=== PATIENT | female | born 2000 | race Caucasian/White ===

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

== ENCOUNTER → 2020-07-23 | Outpatient (CLI) | payer OTHER, MEDICAID, SELFPAY ==
[2020-07-23 10:28] VITALS: BMI 39.2
[2020-07-23 14:04] LABS: Amphetamine Urine VISTA NEGATIVE (<1000 ng/mL); Barbiturate Urine VISTA NEGATIVE (< 200 ng/mL); Benzodiazepine Urine VISTA NEGATIVE (< 200 ng/mL); Cocaine Urine VISTA NEGATIVE (< 300 ng/mL); Ecstacy Urine VISTA NEGATIVE (< 500 ng/mL); Methadone Urine VISTA NEGATIVE (< 300 ng/mL); PCP Urine VISTA NEGATIVE (< 25 ng/mL); THC Urine VISTA POSITIVE (< 50 ng/mL); Vista UDS pH Range 6
[2020-07-25 03:06] LABS: Chlamydia By Nucleic Acid AMP Negative (Negative)
[2020-07-25 08:21] LABS: Gonococcus By Nucleic Acid AMP Negative (Negative)
== END | disposition home or self-care (01) ==
LOC: LABSPEC 13:28
PROVIDERS: Referring Provider Obstetrics & Gynecology; Visit Provider Obstetrics & Gynecology
DX: Z34.00 Encounter for supervision of normal first pregnancy, unspecified trimester (principal)
CPT/HCPCS: 80307; 87086; 87491; 87591

== ENCOUNTER → 2020-08-22 11:20 | Outpatient (CLI) | payer OTHER, MEDICAID, SELFPAY ==
[2020-08-22 10:49] VITALS: BMI 38.5
[2020-08-22 11:55] LABS: Absolute Lymphocyte Count 1.94 X10^3/uL (0.83-4.51); Absolute Neutrophil Count 9.8 X10^3/uL (2.0-7.7); Basophil# 0.02 X10^3/uL; Basophil% 0.2 % (0-1); Eosinophil# 0.03 X10^3/uL; Eosinophils% 0.2 % (0-5); Hematocrit 36.2 % (37-47); Hemoglobin 12.4 g/dL (12.0-15.0); Lymphocyte # 1.94 X10^3/ul (4.0); Lymphocyte % 15.6 % (19-41); Mean Corp Hgb Conc 34.3 g/dL (32-36); Mean Corpuscular Hgb 30.2 pg (27.0-32.0); Mean Corpuscular Volume 88.3 fL (81-99); Mean Platelet Vol. 9.4 fl (6.2-12.0); Monocyte# 0.56 X10^3/uL; Monocyte% 4.5 % (0-10); NRBC Flagged by Analyzer 0 % (0-5); Neutrophil # 9.81 X10^3/uL (2.7-7.7); Neutrophil % 79.2 % (47-70); Platelet Count 293 K/mm3 (150-450); RBC Distribution Width CV 11.9 % (11.6-14.6); RBC Distribution Width SD 38.3 fl (35.1-43.9); White Blood Count 12.4 K/mm3 (4.4-11.0)
[2020-08-22 12:16] LABS: Glucose Challenge Gest 1H 50g 109 mg/dL (70-140)
[2020-08-22 13:04] LABS: HIV - WCH Non-Reactive (Nonreactive); Hepatitis B Surface Antigen Non-Reactive (Nonreactive); Hepatitis C Antibody Non-Reactive (Nonreactive); Rubella IgG Reactive (Nonreactive); Syphilis Antibodies Non-reactive
== END ==
PROVIDERS: Referring Provider Obstetrics & Gynecology; Visit Provider Obstetrics & Gynecology
DX: O99.210 Obesity complicating pregnancy, unspecified trimester (principal); Z31.430 Encounter of female for testing for genetic disease carrier status for procreative management
CPT/HCPCS: 36415; 82950; 85025; 86703; 86762; 86803; 86850; 86900; 86901; 87340

== ENCOUNTER 2020-11-19 14:25 | Outpatient (CLI) | payer MEDICAID, SELFPAY ==
[2020-11-16 11:26] VITALS: BMI 41.4
[2020-11-19 14:38] VITALS: BMI 40.6
[2020-11-19 16:41] VITALS: BP 111/56; PULSE 86
--- NOTE | 2020-11-20 10:01 | OB.TRI.PN ---
Progress Notes Progress Note: Patient presents for triage evaluation secondary to fall. Fell down 4 stairs and hit her abdomen. Monitored continuously for 4 hours with no evidence of contractions. Discharged in stable condition. FHT: Moderate variability reactive no decelerations category I tracing [place]: No Contractions Assessment and plan: Reactive NST, reassuring maternal and status patient discharged to home to follow-up at next scheduled visit. See problem list details for additional plan information. Procedures Urinary/Genital 52xxx-59xxx: [id number] non-stress test Interp
== END 2020-11-19 16:53 | disposition home or self-care (01) ==
LOC: WPOUT 14:34 → WP 14:34
PROVIDERS: Visit Provider Obstetrics & Gynecology
DX: Z34.90 Encounter for supervision of normal pregnancy, unspecified, unspecified trimester (principal); W10.9XXA Fall (on) (from) unspecified stairs and steps, initial encounter
CPT/HCPCS: 59025; 59050; 99218; G0378

== ENCOUNTER → 2020-11-20 13:00 | Outpatient (CLI) | payer MEDICAID, SELFPAY ==
[2020-11-19 14:38] VITALS: BMI 40.6
== END ==
PROVIDERS: Referring Provider Nurse Practitioner Women's Health; Visit Provider Nurse Practitioner Women's Health
DX: O26.892 Other specified pregnancy related conditions, second trimester (principal); Z67.91 Unspecified blood type, Rh negative; Z3A.00 Weeks of gestation of pregnancy not specified
CPT/HCPCS: 36415; 86850; 86900; 86901

== ENCOUNTER → 2020-12-06 11:42 | Outpatient (CLI) | payer OTHER, MEDICAID, SELFPAY ==
[2020-12-06 11:21] VITALS: BMI 40.6
[2020-12-06 12:00] LABS: Absolute Lymphocyte Count 2.28 X10^3/uL (0.83-4.51); Basophil# 0.02 X10^3/uL; Basophil% 0.1 % (0-1); Eosinophil# 0.09 X10^3/uL; Eosinophils% 0.6 % (0-5); Hematocrit 34.2 % (37-47); Hemoglobin 11.4 g/dL (12.0-15.0); Lymphocyte # 2.28 X10^3/ul (0.83-4.51); Lymphocyte % 16.4 % (19-41); Mean Corp Hgb Conc 33.3 g/dL (32-36); Mean Corpuscular Hgb 29.9 pg (27.0-32.0); Mean Corpuscular Volume 89.8 fL (81-99); Mean Platelet Vol. 8.9 fl (6.2-12.0); Monocyte# 0.44 X10^3/uL; Monocyte% 3.2 % (0-10); NRBC Flagged by Analyzer 0 % (0-5); Platelet Count 303 K/mm3 (150-450); RBC Distribution Width CV 12.3 % (11.6-14.6); Red Blood Count 3.81 M/mm3 (4.2-5.4); White Blood Count 13.9 K/mm3 (4.4-11.0)
[2020-12-06 12:41] LABS: Glucose Challenge Gest 1H 50g 117 mg/dL (70-140)
[2020-12-06 13:06] LABS: Syphilis Antibodies Non-reactive
[2020-12-06 15:23] LABS: Amphetamine Urine VISTA NEGATIVE (<1000 ng/mL); Barbiturate Urine VISTA NEGATIVE (< 200 ng/mL); Benzodiazepine Urine VISTA NEGATIVE (< 200 ng/mL); Cocaine Urine VISTA NEGATIVE (< 300 ng/mL); Ecstacy Urine VISTA NEGATIVE (< 500 ng/mL); Methadone Urine VISTA NEGATIVE (< 300 ng/mL); PCP Urine VISTA NEGATIVE (< 25 ng/mL); THC Urine VISTA POSITIVE (< 50 ng/mL); Vista UDS pH Range 6
== END ==
PROVIDERS: Nurse Practitioner Women's Health; Obstetrics & Gynecology; Referring Provider Obstetrics & Gynecology; Visit Provider Obstetrics & Gynecology
DX: O99.321 Drug use complicating pregnancy, first trimester (principal); F12.10 Cannabis abuse, uncomplicated; O26.892 Other specified pregnancy related conditions, second trimester; Z67.91 Unspecified blood type, Rh negative; Z3A.00 Weeks of gestation of pregnancy not specified
CPT/HCPCS: 36415; 80307; 82950; 85025; 86780; 86850; 86870; 86900; 86901

== ENCOUNTER → 2021-01-03 09:12 | Outpatient (CLI) | payer OTHER, MEDICAID, SELFPAY ==
[2020-12-28 13:21] VITALS: BMI 40.6
--- NOTE | 2021-01-03 09:13 | US_ITS ---
STUDY: SECOND AND THIRD TRIMESTER OBSTETRICAL ULTRASOUND - LIMITED REASON FOR EXAM: Female, 20 years old growth LMP: 05/18/2020. PRIOR ULTRASOUND: None. TECHNIQUE: Transabdominal TECHNICAL QUALITY: Adequate. FINDINGS: There is a single intrauterine fetus. The fetus is in a cephalic presentation. There is demonstrated cardiac activity with a heart rate of 152 bpm. There is a normal amniotic fluid volume. The largest amniotic fluid pocket measures 4.87 cm cm. The amniotic fluid index (JUAN) is 12.7 cm. The placenta is anterior in location and is not low lying. There are Grade 1 placental changes. The cervix measures 3.6 cm in length. BIOMETRY: BPD: 8.42 cm: 33 weeks, 6 days HC: 31.13 cm: 34 weeks, 5 days AC: 29.87 cm: 33 weeks, 5 days FL: 6.4 cm: 33 weeks, 0 days Age by LMP: 32 weeks, 6 days. ALE by LMP: 02/22/2021. age by current US: 34 weeks, 0 days. ALE by current US: 02/14/2021. Estimated weight: 2266 grams, +/- 340 grams, 68 percentile. US/OB Limited With Biometrics IMPRESSION: Single live intrauterine gestation with a mean gestational age of 34 weeks. Electronically Signed: Dipak Bates MD at 15:37 EDT , Service support ,
== END ==
PROVIDERS: Referring Provider Obstetrics & Gynecology; Visit Provider Obstetrics & Gynecology
DX: O99.213 Obesity complicating pregnancy, third trimester (principal); E66.9 Obesity, unspecified; Z3A.32 32 weeks gestation of pregnancy
CPT/HCPCS: 76816

== ENCOUNTER → 2021-01-25 | Outpatient (CLI) | payer OTHER, MEDICAID, SELFPAY ==
[2021-01-25 08:53] VITALS: BMI 44.7
== END | disposition home or self-care (01) ==
PROVIDERS: Visit Provider Obstetrics & Gynecology
DX: Z34.01 Encounter for supervision of normal first pregnancy, first trimester (principal); Z3A.00 Weeks of gestation of pregnancy not specified
CPT/HCPCS: 87081

== ENCOUNTER → 2021-01-31 07:39 | Outpatient (CLI) | payer OTHER, MEDICAID, SELFPAY ==
[2021-01-25 08:53] VITALS: BMI 44.7
--- NOTE | 2021-01-31 07:59 | US_ITS ---
STUDY: SECOND AND THIRD TRIMESTER OBSTETRICAL ULTRASOUND - LIMITED REASON FOR EXAM: Female, 20 years old growth -- 36 weeks gestation LMP: 05/18/2020. PRIOR ULTRASOUND: Comparison is made with prior examination dated 01/03/2021. TECHNIQUE: Transabdominal TECHNICAL QUALITY: Adequate. FINDINGS: There is a single intrauterine fetus. The fetus is in a cephalic presentation. There is demonstrated cardiac activity with a heart rate of 153 bpm. There is a normal amniotic fluid volume. The largest amniotic fluid pocket measures 3.8 cm. The amniotic fluid index (JUAN) is 14.3 cm. The placenta is anterior in location and is not low lying. There are Grade 2 placental changes. BIOMETRY: BPD: 9.4 cm: 38 weeks, 1 days HC: 33.9 cm: 38 weeks, 6 days AC: 34.4 cm: 38 weeks, 2 days FL: 7.3 cm: 37 weeks, 1 days Age by LMP: 36 weeks, 6 days. ALE by LMP: 02/22/2021. age by prior US: 38 weeks, 0 days. ALE by prior US: 02/14/2021. age by current US: 38 weeks, 2 days. ALE by current US: 02/13/2020. Estimated weight: 3423 grams, +/- 5:30 grams, 86 percentile. US/OB Limited With Biometrics IMPRESSION: Single live intrauterine gestation with a mean gestational age of 38 weeks. The measurements obtained today fall within the normal expected range. Electronically Signed: Dipak Bates MD at 10:34 EDT , Service support ,
== END ==
PROVIDERS: Referring Provider Obstetrics & Gynecology; Visit Provider Obstetrics & Gynecology
DX: O99.210 Obesity complicating pregnancy, unspecified trimester (principal); E66.9 Obesity, unspecified; Z3A.36 36 weeks gestation of pregnancy
CPT/HCPCS: 76816

== ENCOUNTER → 2021-02-01 10:31 | Outpatient (CLI) | payer MEDICAID, SELFPAY ==
[2021-01-31 10:16] VITALS: BMI 44.7
[2021-02-01 11:14] LABS: ALB/GLOB Ratio 0.6 RATIO (0.9-2.4); AST(SGOT) 18 U/L (15-37); Alanine Aminotransfer ALT/SGPT 27 U/L (13-56); Albumin, Serum 2.6 g/dL (3.2-5.0); Alkaline Phosphatase 114 U/L (45-117); Anion Gap 9 (5-15); BUN 9 mg/dL (7-18); BUN/Creat Ratio 15.4 RATIO (10-20); Calcium,Total 9.3 mg/dL (8.5-10.1); Chloride 107 mmol/L (98-107); Creatinine, Serum 0.58 mg/dL (0.55-1.02); EST Glomerular Filtration Rate 138 mL/min (>60); Est Glom Filt Rate - Afr Amer 167 mL/min (>60); Globulin 4.4 g/dL (2.2-4.2); Glucose 103 mg/dL (74-106); Potassium 3.8 mmol/L (3.5-5.1); Sodium Level 138 mmol/L (136-145)
== END ==
PROVIDERS: Referring Provider Obstetrics & Gynecology; Visit Provider Obstetrics & Gynecology
DX: O26.893 Other specified pregnancy related conditions, third trimester (principal); L29.9 Pruritus, unspecified; Z3A.36 36 weeks gestation of pregnancy
CPT/HCPCS: 36415; 80053

== ENCOUNTER 2021-02-04 16:15 | Inpatient (IN) | payer OTHER, MEDICAID, SELFPAY ==
[2021-01-31 10:16] VITALS: BMI 44.7
[2021-02-04 16:50] VITALS: BMI 47.4
[2021-02-04 17:23] LABS: Absolute Lymphocyte Count 2.52 X10^3/uL (0.83-4.51); Absolute Neutrophil Count 12.1 X10^3/uL (2.0-7.7); Basophil# 0.03 X10^3/uL; Basophil% 0.2 % (0-1); Eosinophil# 0.05 X10^3/uL; Eosinophils% 0.3 % (0-5); Hematocrit 35.8 % (37-47); Hemoglobin 11.7 g/dL (12.0-15.0); Lymphocyte # 2.52 X10^3/ul (0.83-4.51); Lymphocyte % 16.1 % (19-41); Mean Corp Hgb Conc 32.7 g/dL (32-36); Mean Corpuscular Hgb 29.2 pg (27.0-32.0); Mean Corpuscular Volume 89.3 fL (81-99); Mean Platelet Vol. 9.4 fl (6.2-12.0); Monocyte# 0.82 X10^3/uL; Monocyte% 5.2 % (0-10); NRBC Flagged by Analyzer 0 % (0-5); Neutrophil # 12.14 X10^3/uL (2.7-7.7); Neutrophil % 77.7 % (47-70); Platelet Count 397 K/mm3 (150-450); RBC Distribution Width CV 12.8 % (11.6-14.6); RBC Distribution Width SD 41.4 fl (35.1-43.9); Red Blood Count 4.01 M/mm3 (4.2-5.4); White Blood Count 15.6 K/mm3 (4.4-11.0)
--- NOTE | 2021-02-04 17:33 | HP.PCM.OB_ITS ---
HPI - General General Date of Admission: 02/04/21 HPI Narrative MANUEL CAMERON, is a 20 F who presents for IOL secondary to cholestasis diagnosed by elevated bile acids and itching. Maternal Data Information ALE Calculator Estimated Delivery Date Method Current WG Current Estimate 02/22/21 LMP (Certain) 37w 3d PFSH PFSH Medical History (Updated 02/04/21 @ 17:[address] Vannesa Carvalho MD) Asthma Home Medications albuterol sulfate 1 - 2 puff INHALATION Q4H PRN PRN 11/21/16 [History Last Taken Unknown] multivitamin no.47-iron fum 27 mg-folate no.1 1 mg-dha 300 mg capsule 1 cap PO DAILY 07/19/20 [History Last Taken 02/03/21] famotidine [Pepcid] 20 mg PO PRN PRN 02/04/21 [History Last Taken Unknown] Allergy/AdvReac Type Severity Reaction Status Date / Time No Known Allergies Allergy Verified 01/25/21 08:52 Family History Mother Diabetes Surgical History History of tonsillectomy Social History household members: significant other current occupational status: employed pets and animals: Yes Smoking Status: Never smoker second hand exposure: No alcohol intake: never substance use type: does not use seatbelt use: always do you feel safe at home: Yes additional social history: BF: Tejas History 1 Elective abortions Hx Para 0 Spontaneous abortions Hx # Term Pregnancies Ectopic pregnancies Hx # Pregnancies Multiple births # of living children Visit Details Expected Delivery Route/Plan Labor Preferences- CB/BF classes: no labor support person: [place] labor intervention preferences: desires delayed cord clamping, ok with baby meds pain management options preferred: limited intervention cut cord/dad catch: yes : yes PP control planned: mini pill discussed possible routes of delivery and associated risks: [] special requests: [] Plans flu vaccine: no tdap vaccine: declined rhogam: 11/20/20 LARC form signed: yes Problem list reviewed and updated with the most current plan of care details and appropriate orders placed. Relevant counseling for the gestational age provided. Continue routine care and follow up unless otherwise noted in visit notes/problem list details OB Flowsheet Initial Weight: 235 lb Date -?-?-?-?-?-?-?-?-?-?-?-?- EGA Weight BP Urine Prot -?-?-?-?-?-?-?-?-?-?-?-?- Glucose FHR FuHt Pres Dilation -?-?-?-?-?-?-?-?-?-?-?-?- Effaced St Visit Note 07/23/20 -?-?-?-?-?-?-?-?-?-?-?-?- 9w 3d 235 lb 8 oz (+8 oz) 132/60 -?-?-?-?-?-?-?-?-?-?-?-?- 170 -?-?-?-?-?-?-?-?-?-?-?-?- GP - CRL 22mm co nsistent with LMP. 08/22/20 -?-?-?-?-?-?-?-?-?-?-?-?- 13w 5d 231 lb 6 oz (-3 lb 10 oz) 134/70 -?-?-?-?-?-?-?-?-?-?-?-?- 168 -?-?-?-?-?-?-?-?-?-?-?--?- GP - no cramping or bleeding. Doing NOB labs and early 1h today. Desires NIPT and carrier screening. 09/17/20 -?-?-?-?-?-?-?-?-?-?-?-?- 17w 3d 238 lb (+3 lb) 130/68 Negative -?-?-?-?-?-?-?-?-?-?-?-?- Negative 150 -?-?-?-?-?-?-?-?-?-?-?-?- GP - no cramping or bleeding. +FM. Having headaches - prescribed riboflavin and magnesium. 10/17/20 -?-?-?-?-?-?-?-?-?-?-?-?- 21w 5d 244 lb 8 oz (+9 lb 8 oz) 116/70 Negative -?-?-?-?-?-?-?-?-?-?-?-?- Negative 150 -?-?-?-?-?-?-?-?-?-?-?-?- GP - no ctx, LOF , VB, DFM. Awaiting anatomy report. Had syncopal episode and seen in ER - recommend increased fluids and small frequent meals. If more episodes, will consider cardiology referral. 11/15/20 -?-?-?-?-?-?-?-?-?-?-?-?- 25w 6d 249 lb 4 oz (+14 lb 4 oz) 130/88 Negative -?-?-?-?-?-?-?-?-?-?-?-?- Negative 145 26 -?-?-?-?-?-?-?-?-?-?-?-?- Sm- discussed PL detail with patient and plan of care. co anxiety but declines meds, no vb lof good fm no reuglar ctx 11/20/20 -?-?-?-?-?-?-?-?-?-?-?-?- 26w 4d 246 lb 4 oz (+11 lb 4 oz) 138/74 -?-?-?-?-?-?-?-?-?-?-?-?- -?-?-?-?-?-?-?-?-?-?-?-?- 12/06/20 -?-?-?-?-?-?-?-?-?-?-?-?- 28w 6d 254 lb 2 oz (+19 lb 2 oz) 128/60 Negative -?-?-?-?-?-?-?-?-?-?-?-?- Negative 154 28 -?-?-?-?-?-?-?-?-?-?-?-?- MH_No VB, LOF. G ood FM. Decline tdap. Recent rhogam. Larc done. 28 wk labs 12/21/20 -?-?-?-?-?-?-?-?-?-?-?-?- 31w 0d 259 lb 2 oz (+24 lb 2 oz) 138/88 Negative -?-?-?-?-?-?-?-?-?-?-?-?- Negative 145 31 -?-?-?-?-?-?-?-?-?-?-?-?- GP - no LOF, VB, dFM, ctx. Discussed labor preferences. 12/28/20 -?-?-?-?-?-?-?-?-?-?-?-?- 32w 0d 264 lb (+29 lb) 128/78 Negative -?-?-?-?-?-?-?-?-?-?-?-?- Negative 145 -?-?-?-?-?-?-?-?-?-?-?-?- GP - NST only - reactive. 01/03/21 -?-?-?-?-?-?-?-?-?-?-?-?- 32w 6d 269 lb (+34 lb) 124/72 Negative -?-?-?-?-?-?-?-?-?-?-?-?- Negative 130 -?--?-?-?-?-?-?-?-?-?-?-?- SM?no vaginal bl eeding loss of fluid admits good movement no regular contractions. 01/10/21 -?-?-?-?-?-?-?-?-?-?-?-?- 33w 6d 266 lb (+31 lb) 132/82 Negative -?-?-?-?-?-?-?-?-?-?-?-?- Negative 140 -?-?-?-?-?-?-?-?-?-?-?-?- -NST only reac tive 01/25/21 -?-?-?-?-?-?-?-?-?-?-?-?- 36w 0d 277 lb 6 oz (+42 lb 6 oz) 124/84 Negative -?-?-?-?-?-?-?-?-?-?-?-?- Negative 140 36 Cephalic 0 -?-?-?-?-?-?-?-?-?-?-?-?- 40 -3 GP - no LO F, VB, dFM, ctx. NST reactive. GBS done today. 01/31/21 -?-?-?-?-?-?-?-?-?-?-?-?- 36w 6d 285 lb (+50 lb) 124/82 Negative -?-?-?-?-?-?-?-?-?-?-?-?- Negative 130 -?-?-?-?-?-?-?-?-?-?-?-?- GP - no LOF, VB, dFM, ctx. Discussed management of normal swelling in 02/04/21 -?-?-?-?-?-?-?-?-?-?-?-?- 37w 3d 284 lb 13.396 oz (+49 lb 13.396 oz) -?-?-?-?-?-?-?-?-?-?-?-?- -?-?-?-?-?-?-?-?-?-?-?-?- NST FHR Rate Baby A Baseline: 160 Variability:: Moderate Accelerations:: 15 x 15 Decelerations:: None NST Reactive:: Yes FHR Category:: Category I Uterine Activity:: no regular ROS Constitutional Constitutional: Reports systems reviewed and no addt'l complaints, except as documented Eyes Eyes: Denies change in vision ENT HEENT: Reports systems reviewed and no addt'l complaints, except as documented; Denies headache(s) Cardiovascular Cardiovascular: Reports systems reviewed and no addt'l complaints, except as documented; Denies chest pain or dyspnea Respiratory/Chest Respiratory/Chest: Reports systems reviewed and no addt'l complaints, except as documented Gastrointestinal Gastrointestinal: Reports systems reviewed and no addt'l complaints, except as documented; Denies abdominal pain Genitourinary Genitourinary: Reports systems reviewed and no addt'l complaints, except as documented, contractions Details: present (irregular) and movement Details: present; Denies dysuria or genital lesions Musculoskeletal Musculoskeletal: Reports systems reviewed and no addt'l complaints, except as documented Neurologic Neurologic: Reports systems reviewed and no addt'l complaints, except as documented Endocrine Endocrinology: Reports systems reviewed and no addt'l complaints, except as documented Vital Signs Vital Signs Vital Signs: Weight Weight: 284 lb 13.396 oz Body Mass Index (BMI) 47.4 Physical Exam Const alert, oriented x3, no apparent distress and healthy appearing HEENT normocephalic and moist oral mucous membranes Head and Scalp: atraumatic Neck full ROM, no lymphadenopathy, supple and thyroid normal General: trachea midline Lymph Lymphatic: no lymphadenopathy noted Chest inspection of chest normal Resp normal respiratory effort Cardio regular rate GI normal to inspection, nondistended, normoactive bowel sounds, soft to palpation and non-tender Inspection: gravid external exam normal Manual OB Exam: estimated gestational size appropriate, presentation cephalic, dilated, effaced and station Extremity normal to inspection General Extremity: Negative for edema Skin no rashes or lesions noted Neuro no focal motor deficits and deep tendon reflexes 2+ bilaterally Motor Exam: strength 5/5 throughout and clonus absent Psych mental status grossly normal Labs Labs Labs: Blood Type A NEGATIVE Antibody Screen POSITIVE H Hct 35.8 % (37-47) L Hgb 11.7 g/dL (12.0-15.0) L Obstetrics US Syphilis Total Ab Non-reactive Rubella IgG Antibody Reactive (Nonreactive) Hep Bs Antigen Non-Reactive (Nonreactive) Neisseria gonorrhoeae DNA (LAVON) Negative (Negative) HIV 1&2 Antibody Non-Reactive (Nonreactive) Glucose 1 Hr 50 gm 117 mg/dL (70-140) Miscellaneous Test Assessment & Plan (1) Cholestasis during in third trimester: COMMENT: recommend IOL cytotec (2) Abnormal antibody titer: COMMENT: Anti-D titer ordered, titer showed due to rhogam (3) Obesity affecting : QUALIFIERS: Trimester: third trimester Qualified Code(s): O99.213 - Obesity complicating , third trimester COMMENT: nl 1 tm gct. third trimester testing. (4) Anxiety and depression: COMMENT: no meds, encouraged counseling. patient states she uses marijuana for this, discussed risks with patient and recommend prescription medication. (5) Marijuana abuse: COMMENT: reducing usage, discussed risks. 12/06 positive (6) Rh negative status during : QUALIFIERS: Trimester: second trimester Qualified Code(s): O26.892 - Other specified related conditions, second trimester; Z67.91 - Unspecified blood type, Rh negative COMMENT: rhogam PRN and 28 weeks. given 11/20/20 (7) Supervision of normal first : QUALIFIERS: Trimester: first trimester Qualified Code(s): Z34.01 - Encounter for supervision of normal first , first trimester COMMENT: PRR ALE: 02/22/21, rosetta Guevara BF: [place] (8) Asthma: QUALIFIERS: Asthma severity: mild Asthma persistence: intermittent Asthma complication type: uncomplicated Qualified Code(s): J45.20 - Mild intermittent asthma, uncomplicated COMMENT: mild intermittent (9) : QUALIFIERS: Weeks of gestation: 36 weeks Qualified Code(s): Z3A.36 - 36 weeks gestation of COMMENT: NIPT low risk, carrier neg. . Anatomy US normal but limited views of face/heart. FU anatomy nl, 01/03 growth nl; NEG GBS
[2021-02-04 17:38] VITALS: BP 130/64; TEMP 36.8
[2021-02-04 17:39] VITALS: BP 130/64; PULSE 82; PULSE 89; O2SAT 96
[2021-02-04] MEDS: miSOPROStol 25 MCG TABLET VAGINAL (17:55)
[2021-02-04] MEDS: Mag Hydrox/Al Hydrox/Simeth 30 ML UDC PO (18:38)
[2021-02-04 18:44] LABS: Amphetamine Urine VISTA NEGATIVE (<1000 ng/mL); Barbiturate Urine VISTA NEGATIVE (< 200 ng/mL); Benzodiazepine Urine VISTA NEGATIVE (< 200 ng/mL); Cocaine Urine VISTA NEGATIVE (< 300 ng/mL); Ecstacy Urine VISTA NEGATIVE (< 500 ng/mL); Methadone Urine VISTA NEGATIVE (< 300 ng/mL); PCP Urine VISTA NEGATIVE (< 25 ng/mL); THC Urine VISTA POSITIVE (< 50 ng/mL); Vista UDS pH Range 6
[2021-02-04 19:24] VITALS: BP 138/79; PULSE 90; TEMP 37
[2021-02-04] MEDS: 0.9% Saline Lock 10 ML Syringe IV (20:13)
[2021-02-04] MEDS: Lactated Ringers 1,000 ML 50 ML IV (20:14)
[2021-02-04 22:21] VITALS: BP 132/87; PULSE 85; TEMP 36.9; O2SAT 98
[2021-02-04] MEDS: miSOPROStol 50 MCG TABLET VAGINAL (22:25)
[2021-02-04] MEDS: DiphenhydrAMINE 25 MG Capsule PO (22:50)
[2021-02-05] VITALS (37 sets, daily range): BP systolic 99–170; BP diastolic 51–91; PULSE 66–96; TEMP 36.2–37.1; O2SAT 92–99
[2021-02-05] MEDS: Mag Hydrox/Al Hydrox/Simeth 30 ML UDC PO ×2 (02:13→13:23)
[2021-02-05] MEDS: Lactated Ringers 500 ML 999 ML IV ×2 (03:57→07:40)
[2021-02-05] MEDS: Ondansetron 4 MG/2 ML Vial IV ×2 (03:57→19:20)
[2021-02-05] MEDS: 0.9% Saline Lock 10 ML Syringe IV ×2 (03:58→06:24)
[2021-02-05] MEDS: fentaNYL 100 MCG/2 ML Ampul IV (06:24)
[2021-02-05] MEDS: miSOPROStol 25 MCG TABLET VAGINAL (06:42)
[2021-02-05] MEDS: fentaNYL-bupivacaine (epidural) 100 ML BAG EPIDURAL ×4 (08:30→22:19)
[2021-02-05] MEDS: 0.9% Normal Saline Single 100 ML IV.SOLN. INTRA-UTER (08:50)
--- NOTE | 2021-02-05 08:59 | PCM.PN.BLA ---
Progress Note Patient had increasing discomfort overnight underwent epidural placement current tracing: FHT: 150 Moderate variability reactive no decelerations category I tracing [place]: Not always able to trace consistently but when able every 2 to 4 contractions reviewed tracing abnormalities since last note: No significant A/P: Status post epidural placement, patient now 2-3 60 and -2. Hardin bulb placed and will start Pitocin by 11:00
[2021-02-05] MEDS: Oxytocin 30 units/NS 500 ml 30 UNITS/500 ML IV.SOLN IV (11:09)
[2021-02-05] MEDS: Lactated Ringers 1,000 ML 200 ML IV ×3 (11:09→22:04)
[2021-02-05] MEDS: Acetaminophen 500 MG Tablet PO (23:16)
[2021-02-06] VITALS (17 sets, daily range): BP systolic 116–144; BP diastolic 56–79; PULSE 68–90; RESP 16–18; TEMP 36.5–37.1; O2SAT 96–97
--- NOTE | 2021-02-06 01:01 | PCM.PN.BLA ---
Progress Note 8-9 cm cervix thinning, positional changes, discussed arrest of dilation and descent but recommend continued pit per protocol because still inadequate trial of induction, tracing overall reassuring. position changes and head gently rotated from OP to OA
--- NOTE | 2021-02-06 02:02 | OP.PCM_ITS ---
Maternal Data Information ALE Calculator Estimated Delivery Date Method Current Current Estimate 02/22/21 LMP (Certain) 37w 5d Vaginal Delivery Operative Information Date of Procedure: 02/06/21 Pre-Operative Diagnosis: IOL cholestasis Post-Operative Diagnosis: same Surgery / Procedure Performed: Spontaneous Vaginal Delivery Type of Anesthesia: Epidural Special Medications: none Estimated Blood Loss: 100 Fluids Replaced: crystalloid Findings Description of Procedure: Patient began pushing and delivered the head in the BHUPENDRA presentation. The head was delivered atraumatically . The anterior and posterior shoulders delivered without complication followed by the rest of the infant and the infant was placed on the maternal abdomen. Delayed cord clamping was employed for approximately 60 seconds. Cord was clamped and cut and gentle traction was applied to the cord and the placenta delivered spontaneously immediately following it was noted to be intact with three-vessel cord. The perineum and vagina were inspected and noted to have a second-degree perineal laceration that was repaired in the usual fashion with 3-0 Vicryl repeat. EBL was 100 cc. Patient and tolerated delivery well. Presentation: BHUPENDRA Amniotic Membrane Rupture Type: Artificial Amniotic Fluid Description: Clear Placental Delivery Description: Spontaneous Placenta Disposition: [facility] Cord Vessel Description: 3 Vessels Cord Entanglement: None A Gender: Male Delayed Cord Clamping: Yes Post Vaginal Delivery Medications Given After Delivery: IV Pitocin Episiotomy Description: None Laceration: Perineal Extension/lac and 2nd degree Complication Complications: None Procedures Urinary/Genital 52xxx-59xxx: [id number] Vaginal Delivery+ Care([facility])
[2021-02-06] MEDS: Oxytocin 30 units/NS 500 ml 30 UNITS/500 ML IV.SOLN 334 UNITS IV (02:15)
[2021-02-06] MEDS: 0.9% Saline Lock 10 ML Syringe IV (04:55)
--- NOTE | 2021-02-06 07:48 | NURSING ---
bedside report given to Camilo Casas RN who is assuming care of pt at this time
[2021-02-06] MEDS: Prenatal Vits Tablet 1 TABLET PO (11:01)
[2021-02-06] MEDS: Naproxen 500 MG Tablet PO (11:01)
[2021-02-07 01:50] VITALS: BP 145/83; PULSE 83; RESP 16; TEMP 36.3; O2SAT 96
--- NOTE | 2021-02-07 08:31 | PCM.DC ---
Discharge Instructions Diet Discharge Diet: No restrictions Activity Discharge Activity: Return to Normal Activity, May Not Drive (while taking narcotic pain medications.) and May Shower May resume sexual activity in: 4-6 weeks Dressing / Incision Call your doctor if your incision/area has: Continuous Slow Oozing, Sudden Increased Bleeding, Increased Pain/ Swelling, Increased Redness and Foul Smelling Discharge Follow Up Care Please Follow Up With: Vannesa Carvalho MD When: Call [phone] to make an appointment with your doctor in 6 weeks. If you had elevated blood pressure or 4th degree laceration, you will need to be seen in 2 weeks. Test Results: Test results from this visit will be discussed in further detail at your follow-up appointment, if applicable. Discharge Plan Admission Admit Date/Time: 02/04/21 16:15 Attending Provider: Vannesa Carvalho Primary Care Provider: Care Physician,No Primary Discharge Orders/Prescriptions Prescriptions: No Action PNV-DHA 27 mg iron-1 mg -300 mg capsule 1 cap PO DAILY RF: 0 albuterol sulfate 1 INHALER inhaler 1 - 2 puff INHALATION Q4H PRN PRN (Reason: Asthma) RF: 0 famotidine [Pepcid] 20 mg tablet 20 mg PO PRN PRN (Reason: Heartburn) RF: 0 Referrals / Follow Up: Care Physician,No Primary [Primary Care Provider] - Disposition Disposition (needs filled in before D/C Order can be placed): Home, Self Care
[2021-02-07 08:35] VITALS: BP 141/89; PULSE 80; RESP 18; TEMP 36.6
--- NOTE | 2021-02-07 08:43 | NURSING ---
Pt. tearful about going to the [facility] for circ without the patient or FOB. Pt. consents to procedure, states I'll just do it now, or else I won't do it later., not concerned about procedure, just wants a parent with infant.
--- NOTE | 2021-02-07 12:00 | CASEMGMT ---
Social Work Assessment Labor and Delivery Unit Patient Address: [address] [place] [address]. [address] [place] [id number] Phone number: [phone]; alternate phone number [phone]. Date of Referral: 02/06/2021 Time of Referral: 324 Referred By: Dr. Chaudhry Date of Intervention: 02/07/2021 Time of Intervention: 1150 Reason for Referral: Maternal THC use in . History obtained from: Medical records and mother of baby (MOB) Ivy Santos; father of baby (FOB) Tejas Merlos present for part of conversation. Household composition: MOB and FOB with in an apartment together. No reported concerns with housing. Patient's parent/guardian status: ENRIQUE is a 20-year-old single female, involved with the FOB who is a 22-year-old single male for the last 4 years. During private conversation, the MOB denies any form of abuse, control, or intimidation. [place] baby is the first child for both parents. baby is to be named Ismael Merlos, date of 02/06/2021. Medical History: ENRIQUE is 1, para 0 now 1 after delivering Ismael. care started in the first trimester and regular thereafter. ENRIQUE delivered at 37 weeks after being induced due to cholestasis. Ismael delivered weighing 7 pounds 7 ounces. 7 and 9 at 1 and 5 minutes of life. Educational Status: ENRIQUE has trade school experience. Studied medical assisting. No reported issues with reading, writing, or learning. 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 Plans to return. FORoque has been working second shift at a local factory in [facility]. Infant Supplies: MOB and FOB reported to have all necessary supplies to care for the including a car seat, pack and play with a bassinet attachment, and a crib. Reports to be okay on clothing, diapers, and wipes. ENRIQUE is planning to breast-feed. Childcare/Caregiver(s): MOB and FOB plan to be the primary caregivers of this infant. Transportation: Both parents drive and deny any concerns with transportation. Programs/Agencies Involved: ENRIQUE has WIC. Reports to have food and medical through job and family services. No other reported agency involvement. No history of children services as this is the first child for parents. No reported legal issues. Behavioral Health Issues: Mental Health History: MOB reports diagnosis of depression about 5 years ago after her father . Anxiety also around that time. Reports history of PTSD related to her father's . Reports depression has stabilized and now struggles most with anxiety. Reports at the age of 14 had thoughts of harming herself, but did not act upon these thoughts. Denies any thoughts of self-harm or suicide during this . [place] depression screen completed during this assessment was a score of 6. This falls below the threshold for depression. MOB reports a history of antidepressant medication for about a year after her father's , but has done well off of it. No history of counseling. Substance Use History: Chart indicates history of social alcohol use. MOB denies alcohol use during . Denies any prescription drug abuse, heroin, meth, cocaine, or other illicit drugs other than marijuana. Chart indicates the MOB with a 4-year history of marijuana use. MOB endorses use of marijuana during , but reports this was not every day or even every week. Reports use was related to management of anxiety symptoms and also in the beginning to to help with nausea. Reports last use was on [birth year]/19[birth year]21, which was the MOB father's birthday. Denies having a medical marijuana card. Does not smoke tobacco. Drug Screens: Maternal drug screens positive on 07/23/2020 (9-week visit), 12/06/2020 (29-week visit), and 02/04/2021 (37-week/time of delivery). Urine drug screen is negative. Meconium drug screen is pending. Family/Social Stressors: was planned, so no reported stress in this area. Chart indicates MOB did experience some anxiety during the . Management of anxiety with marijuana during . Support Systems: FOB is reported as a good support system. Additional support from the MOB mother, a few of the MOB siblings, and the FOB side of the family. MOB reports there is about 10 people they could trust to help with the baby if needed. Depression/Shaken Baby/Safe Sleeping educated parents to safe sleeping and shaken baby prevention. Educated to mood and anxiety disorders, risk factors, and that both mothers and fathers can experience. ASSESSMENT: Met with the MOB and FOB in room, introducing to self and social work role. Near end of conversation asked the FOB to leave for completion of [place] depression screen, which the FOB did willingly. Noted, during conversation with both of the parents, this physician underwriter addressed whether there are any concerns regarding substance use for either parent. Both parents denied. This physician underwriter then reviewed with the MOB privately concerns about repeated drug screens for marijuana during and explored this topic further. MOB reported the FOB is aware of MOB history of marijuana use. When asked, the MOB endorsed the FOB does have a history of using marijuana but not frequently and denied this is a concern for the FOB. MOB reported intent to abstain from any marijuana use while breast-feeding. Unable to identify intent on future use once breast-feeding is completed. At this point MOB reported to feel connected with the baby, reported to have all needed supplies, and have support at home. MOB able to identify some healthy coping skills such as use of distraction and grounding techniques to help with anxiety. Educated the MOB to supportive services in the community such as nurse visit, helping grow, and early Headstart services. MOB declined referral to any of the services. This physician underwriter offered MOB referral for counseling, which the MOB declined. Educated MOB to the need for referral to children services related to substance exposed infant in utero. MOB acknowledged that she had an idea this would need to happen. Offered MOB opportunity to ask questions, which this physician underwriter did answer as able. MOB denies any other concerns or questions prior to social work leaving the room. MOB calm and cooperative during social work visit. Affect constricted. Appearing teary-eyed a couple of times, though did not actually cry. Eye contact good. MOB accepted community resource information and information on mood and anxiety disorders. Safe Plan of Care for infant related to substance use: Abstain from marijuana use while breast-feeding. If use occurs in the future, ingestion will occur outside of the home and not in front of the baby. Clothes will be changed upon entering the home and prior to caring for the baby. Discussed with MOB the importance of having at least 1 sober adult present to care for the baby. MOB expressed understanding. PLAN: MOB and infant will discharge home. Resources for [facility] provided. Will be monitoring for meconium drug screen results. Will be calling [facility] children services related to exposure in utero to marijuana. -JAKUB Huerta MSW *Information documented in this assessment generated with [employer] System*
[2021-02-07 12:20] VITALS: BP 137/86; PULSE 90; RESP 18; TEMP 36.7
--- NOTE | 2021-02-07 15:18 | CASEMGMT ---
Social Work Labor and Delivery Unit Called [facility] services, and spoke with intake screening department. Referral given due to substance exposed in utero. Reported maternal positive drug screens; Negative infant urine drug screen and pending meconium drug screen for the baby. Brief maternal and infant histories provided including additional risk factors such as untreated maternal mental health. Referral will be typed up and given to security guard supervisor to determine whether referral will be screening at this time. Plan: Mother of baby and discharged home. Resource information for [facility] provided prior to discharge. Will monitor for meconium drug screen results, and if positive report to [facility]. -ELÍAS Huerta, W[employer] BLANKING PRESS ADJUSTER *Information generated via the [employer] system.*
== END 2021-02-07 12:45 | disposition home or self-care (01) | DRG 560 ==
PROVIDERS: Admitting Provider Obstetrics & Gynecology; Visit Provider Obstetrics & Gynecology
DX: O26.62 Liver and biliary tract disorders in childbirth (principal); K83.1 Obstruction of bile duct; O62.0 Primary inadequate contractions; O70.1 Second degree perineal laceration during delivery; Z20.822 Contact with and (suspected) exposure to COVID-19; O99.52 Diseases of the respiratory system complicating childbirth; J45.20 Mild intermittent asthma, uncomplicated; O26.893 Other specified pregnancy related conditions, third trimester; L29.9 Pruritus, unspecified; O99.324 Drug use complicating childbirth; F12.10 Cannabis abuse, uncomplicated; O99.214 Obesity complicating childbirth; E66.9 Obesity, unspecified; Z3A.37 37 weeks gestation of pregnancy; Z37.0 Single live birth
CPT/HCPCS: 36415; 59025; 59050; 80053; 80307; 85025; 85461; 86850; 86900; 86901; 87426; 90384; 99218; J7120; A4216; G0378; J2405; J2790

== ENCOUNTER → 2022-09-11 | Outpatient (CLI) | payer MEDICAID, SELFPAY ==
[2022-09-12 22:07] LABS: Chlamydia By Nucleic Acid AMP Negative (Negative)
[2022-09-13 08:56] LABS: Gonococcus By Nucleic Acid AMP Negative (Negative)
[2022-09-18 09:45] LABS: HPV Reflexed? YES, CHARGE PATIENT
== END | disposition home or self-care (01) ==
LOC: LABSPEC 11:19
PROVIDERS: Referring Provider Nurse Practitioner Women's Health; Visit Provider Nurse Practitioner Women's Health
DX: Z12.4 Encounter for screening for malignant neoplasm of cervix (principal); Z11.3 Encounter for screening for infections with a predominantly sexual mode of transmission
CPT/HCPCS: 87491; 87591; 87624; 88175; G0145

== ENCOUNTER → 2024-03-10 | Outpatient (CLI) | payer MEDICAID, SELFPAY ==
[2024-03-10 14:29] LABS: Amphetamine Urine VISTA NEGATIVE (<1000 ng/mL); Barbiturate Urine VISTA NEGATIVE (< 200 ng/mL); Benzodiazepine Urine VISTA NEGATIVE (< 200 ng/mL); Cocaine Urine VISTA NEGATIVE (< 300 ng/mL); Ecstacy Urine VISTA NEGATIVE (< 500 ng/mL); Methadone Urine VISTA NEGATIVE (< 300 ng/mL); PCP Urine VISTA NEGATIVE (< 25 ng/mL); THC Urine VISTA POSITIVE (< 50 ng/mL); Vista UDS pH Range 5
[2024-03-15 03:07] LABS: Chlamydia By Nucleic Acid AMP Negative (Negative); Gonococcus By Nucleic Acid AMP Negative (Negative)
== END | disposition home or self-care (01) ==
LOC: LABSPEC 12:12
PROVIDERS: Referring Provider Advanced Practice Midwife; Visit Provider Advanced Practice Midwife
DX: O99.210 Obesity complicating pregnancy, unspecified trimester (principal); O99.320 Drug use complicating pregnancy, unspecified trimester; F12.10 Cannabis abuse, uncomplicated; Z3A.00 Weeks of gestation of pregnancy not specified
CPT/HCPCS: 80307; 87086; 87491; 87591

== ENCOUNTER → 2024-04-21 | Outpatient (CLI) | payer MEDICAID, SELFPAY ==
[2024-04-21 12:30] LABS: Absolute Lymphocyte Count 2.28 X10^3/uL (0.83-4.51); Absolute Neutrophil Count 7.5 X10^3/uL (2.0-7.7); Basophil# 0.02 X10^3/uL; Basophil% 0.2 % (0-1); Eosinophil# 0.07 X10^3/uL; Eosinophils% 0.7 % (0-5); Hemoglobin 12.8 g/dL (12.0-15.0); Lymphocyte # 2.28 X10^3/ul (0.83-4.51); Lymphocyte % 21.9 % (19-41); Mean Corp Hgb Conc 33.7 g/dL (32-36); Mean Corpuscular Hgb 29.2 pg (27.0-32.0); Mean Corpuscular Volume 86.8 fL (81-99); Mean Platelet Vol. 9.6 fl (6.2-12.0); Monocyte# 0.48 X10^3/uL; Monocyte% 4.6 % (0-10); NRBC Flagged by Analyzer 0 % (0-5); Neutrophil # 7.52 X10^3/uL (2.7-7.7); Neutrophil % 72.3 % (47-70); Platelet Count 323 K/mm3 (150-450); RBC Distribution Width CV 12.5 % (11.6-14.6); RBC Distribution Width SD 39.8 fl (35.1-43.9); Red Blood Count 4.38 M/mm3 (4.2-5.4); White Blood Count 10.4 K/mm3 (4.4-11.0)
[2024-04-21 13:11] LABS: HIV - WCH Non-Reactive (Nonreactive); Hepatitis B Surface Antigen Non-Reactive (Nonreactive); Hepatitis C Antibody Non-Reactive (Nonreactive); Rubella IgG Reactive (Nonreactive); Syphilis Antibodies Non-reactive
[2024-04-21 17:22] LABS: Hemoglobin A1c 5.1 % (3.8-5.6)
== END | disposition home or self-care (01) ==
LOC: WOBLAB 10:42
PROVIDERS: Referring Provider Advanced Practice Midwife; Visit Provider Advanced Practice Midwife
DX: O99.210 Obesity complicating pregnancy, unspecified trimester (principal); O99.320 Drug use complicating pregnancy, unspecified trimester; F12.10 Cannabis abuse, uncomplicated; Z3A.00 Weeks of gestation of pregnancy not specified
CPT/HCPCS: 36415; 83036; 85025; 86703; 86762; 86780; 86803; 86850; 86900; 86901; 87340

== ENCOUNTER → 2024-08-12 | Outpatient (CLI) | payer MEDICAID, SELFPAY ==
[2024-08-12 10:41] LABS: Absolute Lymphocyte Count 2.64 X10^3/uL (0.83-4.51); Absolute Neutrophil Count 8.9 X10^3/uL (2.0-7.7); Basophil# 0.03 X10^3/uL; Basophil% 0.2 % (0-1); Eosinophils% 1.6 % (0-5); Hemoglobin 12.2 g/dL (12.0-15.0); Lymphocyte # 2.64 X10^3/ul (0.83-4.51); Lymphocyte % 21.3 % (19-41); Mean Corp Hgb Conc 33.9 g/dL (32-36); Mean Corpuscular Hgb 30.5 pg (27.0-32.0); Mean Platelet Vol. 9.1 fl (6.2-12.0); Monocyte# 0.57 X10^3/uL; Monocyte% 4.6 % (0-10); NRBC Flagged by Analyzer 0 % (0-5); Neutrophil % 71.8 % (47-70); Platelet Count 324 K/mm3 (150-450); RBC Distribution Width CV 12.8 % (11.6-14.6); RBC Distribution Width SD 41.7 fl (35.1-43.9); White Blood Count 12.4 K/mm3 (4.4-11.0)
[2024-08-12 10:49] LABS: Glucose Challenge Gest 1H 50g 120 mg/dL (70-140)
[2024-08-12 11:22] LABS: HIV - WCH Non-Reactive (Nonreactive); Syphilis Antibodies Non-reactive
== END | disposition home or self-care (01) ==
LOC: BWCLAB 09:43
PROVIDERS: Referring Provider Obstetrics & Gynecology; Visit Provider Obstetrics & Gynecology
DX: O09.92 Supervision of high risk pregnancy, unspecified, second trimester (principal); Z13.1 Encounter for screening for diabetes mellitus; Z3A.00 Weeks of gestation of pregnancy not specified
CPT/HCPCS: 36415; 82950; 85025; 86703; 86780; 86850; 86900; 86901